=== PATIENT | male | born 1965 | race African-American/Black ===

== ENCOUNTER 2022-07-28 15:07 | Emergency (ER) | payer MEDICAID, OTHER ==
[~2022-07-28] VITALS: Ht 154.9 cm; Wt 62.0 kg
[2022-07-28] MEDS ORDERED: FUROSEMIDE 40MG/4ML VIAL IVP ONE (15:30)
[2022-07-28] MEDS ORDERED: FUROSEMIDE 40MG/4ML VIAL IVP SCH (18:15)
[2022-07-28 18:49] LABS: BASOPHILS % 1.6 % (0.0-2.0); EOSINOPHILS % 0.2 % (0.0-5.0); HEMOGLOBIN. 11.7 g/dL (14.0-18.0); LYMPHOCYTES % 36.3 % (20.0-50.0); MEAN CORPUSCULAR HEMOGLOBIN 30.6 pg (28.0-32.0); MEAN CORPUSCULAR VOLUME 88.8 fL (80.0-94.0); MEAN PLATELET VOLUME 8.2 fl (7.4-10.4); MONOCYTES % 12.4 % (2.0-8.0); NEUTROPHILS % 49.5 % (40.0-76.0); PLATELET 426 x1000/uL (130-400); RED BLOOD CELL COUNT 3.83 mill/uL (4.7-6.1); RED CELL DISTRIBUTION WIDTH 13.6 % (11.6-14.6)
[2022-07-28 18:57] LABS: CLARITY URINE CLEAR (CLEAR); COLOR URINE YELLOW (YELLOW); KETONES URINE NEGATIVE (NEGATIVE); LEUKOCYTE ESTERASE URINE NEGATIVE (NEGATIVE); NITRITE URINE NEGATIVE (NEGATIVE); OCCULT BLOOD URINE NEGATIVE (NEGATIVE); PH URINE 5.5 (4.5-8.0); PROTEIN URINE NEGATIVE (NEGATIVE); SPECIFIC GRAVITY URINE 1.008 (1.005-1.030)
[2022-07-28 19:01] LABS: CHLORIDE 110 mEq/L (98-107)
[2022-07-28 19:18] LABS: PROTHROMBIN TIME 11.1 sec (9.6-11.0)
[2022-07-28] MEDS ORDERED: SODIUM POLYSTYRENE SULFONATE 15 G/60 ML BOT PO ONE (19:45)
[2022-07-28] MEDS ORDERED: CHLORDIAZEPOXIDE 25MG CAPSULE PO ONE (20:00)
[2022-07-28 23:15] VITALS: BP 111/76
== END 2022-07-28 23:30 | disposition short-term general hospital (02) ==
LOC: EDBD 15:07 → ER 15:30
DX: K52.3 Indeterminate colitis (principal); E87.70 Fluid overload, unspecified; E87.5 Hyperkalemia; K70.10 Alcoholic hepatitis without ascites; F10.20 Alcohol dependence, uncomplicated; Y90.9 Presence of alcohol in blood, level not specified; E78.00 Pure hypercholesterolemia, unspecified; Z88.0 Allergy status to penicillin
CPT/HCPCS: 36415; 71045; 74176; 76700; 80053; 81003; 82140; 83880; 84484; 85025; 85610; 93005; 96374; 99285; J1940